=== PATIENT | female | born 1955 | race Asian ===

== ENCOUNTER 2016-10-02 20:19 | Inpatient (IN) | payer BC, OTHER ==
[~2016-10-02] VITALS: Ht 165.1 cm; Wt 70.0 kg
[2016-10-02] MEDS ORDERED: SODIUM CHLORIDE 0.9% 1L BAG IV* STA (21:46)
[2016-10-02] MEDS ORDERED: ACETAMINOPHEN 325 MG TAB PO STA (21:46)
[2016-10-02] MEDS ORDERED: HYDR12.58 PO (22:11)
[2016-10-02] MEDS ORDERED: ASPI-664 PO (22:12)
[2016-10-02] MEDS ORDERED: LOVA10TA63 PO (22:12)
[2016-10-02 22:13] LABS: URINE BLOOD (Dip) POC 2+ (NEGATIVE)
[2016-10-02] MEDS ORDERED: IBUP200C PO (22:13)
[2016-10-02] MEDS ORDERED: ONDANSETRON 4 MG INJ IV STA (22:19)
[2016-10-02 22:25] LABS: ADD SCAN DIFF NO
[2016-10-02 22:28] LABS: BASOPHILS % 0.1 % (0.0-2.0); HEMOGLOBIN 10.6 g/dl (12.0-16.0); LYMPHOCYTES # 0.8 10^3/ul (0.8-2.9); LYMPHOCYTES % 6.7 % (15.0-51.0); MEAN CORPUSCULAR HEMOGLOBIN 27.7 pg (29.0-33.0); MEAN CORPUSCULAR HGB CONC 31.2 g/dl (32.0-37.0); MEAN CORPUSCULAR VOLUME 88.8 fl (82.0-101.0); MEAN PLATELET VOLUME 8.7 fl (7.4-10.4); MONOCYTE # 0.4 10^3/ul (0.3-0.9); MONOCYTES % 3.2 % (0.0-11.0); NEUTROPHILS % 89.4 % (39.0-77.0); PLATELET COUNT 311 10^3/UL (140-415); RED BLOOD COUNT 3.83 10^6/ul (4.20-5.40); RED CELL DISTRIBUTION WIDTH 12.7 % (11.5-14.5); WHITE BLOOD COUNT 12.3 10^3/ul (4.8-10.8)
[2016-10-02] MEDS ORDERED: HYD25 PO (22:30)
[2016-10-02] MEDS ORDERED: LOVA20TA PO (22:30)
[2016-10-02 22:43] LABS: ALBUMIN 3.7 g/dl (3.3-4.9)
[2016-10-02 22:45] LABS: INR 1.13; PROTIME 14.5 Sec (12.2-14.2); PT RATIO 1.1
[2016-10-02 22:46] LABS: ALBUMIN/GLOBULIN RATIO 0.82; BILIRUBIN,INDIRECT 0.3 mg/dl (0-1.1); BILIRUBIN,TOTAL 0.3 mg/dl (0.2-1.3); CREATININE 1.4 mg/dl (0.44-1.00); PARTIAL THROMBOPLASTIN TIME 30.5 Sec (25.0-35.0); TOTAL PROTEIN 8.2 g/dl (6.1-8.1)
[2016-10-02 22:47] LABS: CALCIUM 8.8 mg/dl (8.4-10.2)
--- NOTE | 2016-10-02 22:47 | RADRPT ---
PROCEDURE: XR Chest. CLINICAL INDICATION: Shortness of breath. TECHNIQUE: AP Portable chest. COMPARISON: No pertinent prior examinations were submitted for comparison. FINDINGS: The cardiomediastinal silhouette is normal. The lungs are clear. The osseous structures are unrema rkable. IMPRESSION: No acute findings. RPTAT: HIKT .Mauro Menon MD, MD Date Time Electronically viewed and signed by .Mauro Menon MD, MD on 10/02/2016 22:47 .T/
[2016-10-02 22:48] LABS: ADD UMIC YES; URINE BILIRUBIN (Dip) NEGATIVE (NEGATIVE); URINE BLOOD (Dip) 2+ (NEGATIVE); URINE COLOR LT. YELLOW (YELLOW); URINE GLUCOSE (Dip) NEGATIVE (NEGATIVE); URINE KETONES (Dip) NEGATIVE (NEGATIVE); URINE LEUKOCYTE ESTERASE (Dip) NEGATIVE (NEGATIVE); URINE NITRITE (Dip) NEGATIVE (NEGATIVE); URINE TOTAL PROTEIN (Dip) NEGATIVE (NEGATIVE); URINE UROBILINOGEN (Dip) 0.2 E.U./dL (0.1-1.0)
[2016-10-02 22:55] LABS: POTASSIUM 2.8 mmol/L (3.5-5.1)
[2016-10-02 22:56] LABS: SQUAMOUS EPITHELIAL CELL,UR FEW; URINE RBCS 0-2 /HPF (0)
[2016-10-02 23:02] LABS: TROPONIN-I 0.136 ng/ml (0.00-0.12)
[2016-10-02] MEDS ORDERED: POTASSIUM CHLORIDE 250 ML IVPB ONE (23:30)
[2016-10-03] MEDS ORDERED: IBUPROFEN 200 MG TAB PO PRN
[2016-10-03] MEDS ORDERED: DOCUSATE SODIUM 100 MG CAP PO PRN
[2016-10-03] MEDS ORDERED: ASPIRIN 81 MG TAB PO ONE
[2016-10-03] MEDS ORDERED: HYDROCODONE/APAP (5/325) TAB PO PRN ×2
[2016-10-03] MEDS ORDERED: ONDANSETRON 4 MG INJ IV PRN
[2016-10-03] MEDS ORDERED: NACL 0.9% 3 ML SYG IV SCH
[2016-10-03] MEDS ORDERED: BISACODYL 10 MG SUPP PR PRN
[2016-10-03] MEDS ORDERED: NITROGLYCERIN (SL) 0.4 MG TAB SL PRN
[2016-10-03] MEDS ORDERED: MAGNESIUM HYDROXIDE 30ML CUP PO PRN
--- NOTE | 2016-10-03 00:48 | ERA ---
ER Documentation Chief Complaint Date/Time DATE: 10/03/16 TIME: 00:46 Chief Complaint fever, chills, vomiting since 1 hour ago HPI This is a 61-year-old female fever chills and vomiting since 1 hour ago. She denies any chest pain. Denies any shortness of breath. Denies any abdominal pain. One episode of vomiting which is nonbilious nonbloody. No other current complaints. No sick contacts. ROS All systems reviewed and are negative except as per history of present illness. Medications Home Meds Reported Medications Lovastatin* (Lovastatin*) 20 Mg Tablet, 20 MG PO HS, TAB 10/02/16 Hydrochlorothiazide* (Hydrochlorothiazide*) 25 Mg Tab, 25 MG PO DAILY, #30 TAB 10/02/16 Ibuprofen* (Ibuprofen*) 200 Mg Capsule, 200 MG PO TID Y for PAIN, CAP 10/02/16 Aspirin* (Aspirin* EC) 81 Mg Tablet.dr, 81 MG PO DAILY, TAB 10/02/16 Discontinued Reported Medications Lovastatin* (Lovastatin*) 10 Mg Tablet, 10 MG PO HS, TAB 10/02/16 Hydrochlorothiazide* (Hydrochlorothiazide*) 12.5 Mg Tablet, 12.5 MG PO DAILY, # 30 TAB 10/02/16 Allergies Allergies: Coded Allergies: No Known Allergy (Verified , 10/02/16) PMhx/Soc History of Surgery: No Anesthesia Reaction: No Hx Neurological Disorder: No Hx Respiratory Disorders: No Hx Cardiac Disorders: Yes (HNT) Hx Psychiatric Problems: No Hx Miscellaneous Medical Probl: No Hx Alcohol Use: No Hx Substance Use: No Hx Tobacco Use: No Smoking Status: Unknown if ever smoked Physical Exam Vitals Vital Signs Date Time Temp Pulse Resp B/P Pulse Ox O2 Delivery O2 Flow Rate FiO2 10/03/16 00:00 96 22 89/52 97 Nasal Cannula 3.0 10/02/16 22:18 Nasal Cannula 2 10/02/16 20:23 103.0 136 20 151/76 98 Physical Exam Const: [] Head: Atraumatic Eyes: Normal Conjunctiva ENT: Normal External Ears, Nose and Mouth. Neck: Full range of motion..~ No meningismus. Resp: Clear to auscultation bilaterally Cardio: Regular rate and rhythm, no murmurs Abd: Soft, non tender, non distended. Normal bowel sounds Skin: No petechiae or rashes Back: No midline or flank tenderness Ext: No cyanosis, or edema Neur: Awake and alert Psych: Normal Mood and Affect Result Diagram: 10/02/16215410/02/162154 Results 24 hrs Laboratory Tests Test 10/02/16 21:55 10/02/16 22:00 10/02/16 22:13 10/02/16 23:48 White Blood Count 12.310^3/ul Red Blood Count 3.8310^6/ul Hemoglobin 10.6g/dl Hematocrit 34.0% Mean Corpuscular Volume 88.8fl Mean Corpuscular Hemoglobin 27.7pg Mean Corpuscular Hemoglobin Concent 31.2g/dl Red Cell Distribution Width 12.7% Platelet Count 25389^3/UL Mean Platelet Volume 8.7fl Neutrophils % 89.4% Lymphocytes % 6.7% Monocytes % 3.2% Eosinophils % 0.0% Basophils % 0.1% Nucleated Red Blood Cells % 0.0/100WBC Neutrophils # 11.010^3/ul Lymphocytes # 0.810^3/ul Monocytes # 0.410^3/ul Eosinophils # 0.010^3/ul Basophils # 0.010^3/ul Nucleated Red Blood Cells # 0.010^3/ul Prothrombin Time 14.5Sec Prothrombin Time Ratio 1.1 INR International Normalized Ratio 1.13 Activated Partial Thromboplast Time 30.5Sec Sodium Level 134mmol/L Potassium Level 2.8mmol/L Chloride Level 95mmol/L Carbon Dioxide Level 26mmol/L Anion Gap 16 Blood Urea Nitrogen 20mg/dl Creatinine 1.40mg/dl Glucose Level 174mg/dl Lactic Acid Level 1.9mmol/L 1.1mmol/L Calcium Level 8.8mg/dl Total Bilirubin 0.3mg/dl Direct Bilirubin 0.00mg/dl Indirect Bilirubin 0.3mg/dl Aspartate Amino Transf (AST/SGOT) 44IU/L Alanine Aminotransferase (ALT/SGPT) 34IU/L Alkaline Phosphatase 146IU/L Troponin I 0.136ng/ml Total Protein 8.2g/dl Albumin 3.7g/dl Globulin 4.50g/dl Albumin/Globulin Ratio 0.82 Urine Color LT. YELLOW Urine Clarity CLEAR Urine pH 6.0 Urine Specific [place] 1.010 Urine Ketones NEGATIVE Urine Nitrite NEGATIVE Urine Bilirubin NEGATIVE Urine Urobilinogen 0.2 E.U./dL Urine Leukocyte Esterase NEGATIVE Urine Microscopic RBC 0-2/HPF Urine Microscopic WBC 0-2/HPF Urine Squamous Epithelial Cells FEW Urine Hemoglobin 2+ Urine Glucose NEGATIVE% Urine Total Protein NEGATIVE Bedside Urine pH (LAB) 6.5 Bedside Urine Protein (LAB) Negative Bedside Urine Glucose (UA) Negative Bedside Urine Ketones (LAB) Negative Bedside Urine Blood 2+ Bedside Urine Nitrite (LAB) Negative Bedside Urine Leukocyte Esterase (L Negative Current Medications Medications (Trade) Dose Ordered Sig/Maryjane Route PRN Reason Start Time Stop Time Status Last Admin Dose Admin Sodium Chloride (NS) 2,200 ml BOLUS OVER 2 HOURS STAT IV* 10/02/16 21:46 10/02/16 21:51 DC 10/02/16 22:13 Acetaminophen (Tylenol Tab) 650 mg ONCE STAT PO 10/02/16 21:46 10/02/16 21:51 DC 10/02/16 22:13 Ondansetron HCl 4 mg 4 mg ONCE STAT IV 10/02/16 22:19 10/02/16 22:21 DC 10/02/16 22:24 Potassium Chloride (KCl 40 MEQ/250 ML NS) 250 ml @ 62.5 mls/hr ONCE ONCE IVPB 10/02/16 23:30 10/03/16 03:29 10/02/16 23:44 Aspirin 324 mg 324 mg ONCE ONCE PO 10/03/16 00:00 10/03/16 00:01 DC 10/02/16 23:43 Potassium Chloride/Sodium Chloride (NS-KCl 20 Meq) 1,000 ml @ 100 mls/hr Q10H IV 10/02/16 23:52 UNV IV Flush (NS 3 ml) 3 ml PER PROTOCOL IV 10/03/16 00:00 UNV Ondansetron HCl (Zofran Inj) 4 mg Q6H PRN IV NAUSEA AND/OR VOMITING 10/03/16 00:00 UNV Aspirin (Aspirin) 81 mg DAILY PO 10/03/16 09:00 UNV Nitroglycerin (Nitroglycerin (Sl Tab) 0.4 Mg) 1 tab Q5M PRN SL CHEST PAIN 10/03/16 00:00 UNV Acetaminophen (Tylenol Tab) 650 mg Q6H PRN PO PAIN LEVEL 1-3 OR FEVER 10/03/16 00:00 UNV Acetaminophen/ Hydrocodone Bitart ([place] (5/325)) 1 tab Q6H PRN PO PAIN LEVEL 4-6 10/03/16 00:00 UNV Acetaminophen/ Hydrocodone Bitart ([place] (5/325)) 2 tab Q6H PRN PO PAIN LEVEL 7-10 10/03/16 00:00 UNV Morphine Sulfate (morphine) 2 mg Q4H PRN IV PAIN LEVEL 7-10 10/03/16 00:00 UNV Docusate Sodium (Colace) 100 mg Q12H PRN PO CONSTIPATION 10/03/16 00:00 UNV Magnesium Hydroxide (Milk Of Mag) 30 ml DAILY PRN PO CONSTIPATION 10/03/16 00:00 UNV Bisacodyl (Dulcolax Supp) 10 mg DAILY PRN [place] CONSTIPATION 10/03/16 00:00 UNV Pantoprazole (Protonix Tab) 40 mg DAILY@06 PO 10/03/16 06:00 UNV Ibuprofen (Motrin) 200 mg TID PRN PO PAIN 10/03/16 00:00 UNV Miscellaneous Information 20 mg HS PO 10/03/16 21:00 UNV Enoxaparin Sodium (Lovenox) 40 mg DAILY SC 10/03/16 09:00 UNV Procedures/MDM EKG: Rate/Rhythm: Normal Sinus Rhythm QRS, ST, T-waves: No changes consistent w/ acute ischemia Impression: No evidence of ischemia or arrhythmia Chest X-ray 1V Interpreted by me: Soft Tissue: No acute abnormalities Bones: No acute abnormalities Mediastinum/Cardiac Silhouette/Lungs: No acute abnormalities Potassium repleted Lactic acid negative Blood cultures and urine cultures pending Patient's symptoms are concerning for cardiac cause will require inpatient workup and continuous monitoring. Further w/u for ischemia, arrhythmia, PE or dissection will be deferred to the inpatient team. Accepting Care Team: Current data and ongoing care discussed. Time: 11:30 PM Primary Provider: Sadie CHAMPAGNE Consulting: [PJ] Outstanding Data: none Critical Care: Time: 45 minutes Treatments/Evaluations: Close monitoring and treatment of unstable vital signs, cardiorespiratory, and neurologic status, while maintaining tight balance of fluid, respiratory, and cardiac interventions. Departure Diagnosis: Primary Impression: Fever Qualified Code: R50.9 - Fever, unspecified fever cause Additional Impressions: Non-STEMI (non-ST elevated myocardial infarction) Hypokalemia Condition: Critical CHAD JOHNSON Oct 03, 2016 00:48
[2016-10-03] MEDS ORDERED: DEXAMETHASONE 10 MG/ML 1 ML INJ IV ONE (02:30)
[2016-10-03] MEDS ORDERED: PIPER-TAZO 3.375 GM IV (PMX) 100 ML IVPB ONE (02:30)
[2016-10-03] MEDS ORDERED: IOHEXOL 300MG/ML 150 ML BTL ONE (02:50)
[2016-10-03] MEDS ORDERED: SOD CHLORIDE 0.9% 100 ML ONE (02:50)
--- NOTE | 2016-10-03 03:28 | RADRPT ---
PROCEDURE: CTA Chest CLINICAL INDICATION: Shortness of breath. Suspected pulmonary embolus. TECHNIQUE: Thin section spiral CT images were obtained through the vasculature of the chest during administration of 1 under cc of Omnipaque-300 contrast material. Multiplanar reconstructions and 3 -D maximum intensity projection reconstructed images were performed. The images were reviewed on a PACS workstation. The total exam CTDI equals 12.8 mGy, and the total exam DLP equals 542.07 mGy-cm . One or more of the following dose reduction techniques were used: automated exposure control, adj ustment of the mA and/or kV according to patient size, or use of iterative reconstruction technique. COMPARISON: No prior studies are available for comparison. FINDINGS: Slight dependent atelectasis of the lungs is seen. No focal infiltrate or pleural effusion is seen. No pericardial effusion is seen. No hilar or mediastinal adenopathy is seen. There is no definite evidence for pulmonary embolus or aortic dissection. Aortic and coronary artery calcification is s een. Small hiatal hernia. There is a subtle minimally hyperenhancing lesion in the anterior segmen t of the right lobe of the liver which measures 4.6 x 4 cm. Central areas of hypodensity are seen w ithin the lesion centrally. No other liver lesions are seen. The abdomen is incompletely imaged on the study of the chest. There appears to be thymic tissue present suggesting rebound thymic hyperp lasia. There is mild degenerative change of the spine. IMPRESSION: No evidence for pulmonary embolus or aortic dissection. 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 4.6 cm incompletely evaluated liver lesion. Follow-up MRI with Eovist contrast is recommended. Aor tic atherosclerotic change. RPTAT: HLBE Physician Junior Date Time Electronically viewed and signed by Nona Milan Physician on 10/03/2016 03:28 LE/
[2016-10-03] MEDS ORDERED: PANTOPRAZOLE (EC) 40 MG TAB PO SCH (06:00)
[2016-10-03 06:22] LABS: ADD SCAN DIFF NO
[2016-10-03 06:28] LABS: HEMATOCRIT 31.2 % (37.0-47.0); HEMOGLOBIN 9.6 g/dl (12.0-16.0); MEAN CORPUSCULAR HGB CONC 30.8 g/dl (32.0-37.0); MEAN PLATELET VOLUME 8.7 fl (7.4-10.4); PLATELET COUNT 278 10^3/UL (140-415); RED BLOOD COUNT 3.43 10^6/ul (4.20-5.40); WHITE BLOOD COUNT 12.5 10^3/ul (4.8-10.8)
[2016-10-03 06:31] LABS: ALBUMIN 2.7 g/dl (3.3-4.9)
[2016-10-03 06:32] LABS: POTASSIUM 3.6 mmol/L (3.5-5.1)
[2016-10-03 06:34] LABS: ALBUMIN/GLOBULIN RATIO 0.72; BILIRUBIN,INDIRECT 0.2 mg/dl (0-1.1); BILIRUBIN,TOTAL 0.2 mg/dl (0.2-1.3); CALCIUM 7.3 mg/dl (8.4-10.2); CREATININE 1.03 mg/dl (0.44-1.00); TOTAL PROTEIN 6.4 g/dl (6.1-8.1)
[2016-10-03 06:35] LABS: CHOL/HDL RATIO 3.4 RATIO; MAGNESIUM 1.8 mg/dl (1.7-2.5)
[2016-10-03] MEDS: NS + KCL 20 MEQ 1,000 ML IV SCH ×3 (06:51→19:52)
[2016-10-03] MEDS: ASPIRIN 81 MG TAB PO SCH (08:08)
[2016-10-03] MEDS: ENOXAPARIN 40 MG/0.4 ML SYG SC SCH (08:08)
[2016-10-03 08:21] LABS: CK-MB 0.41 ng/ml (0.0-2.4)
[2016-10-03 08:24] LABS: TROPONIN-I 0.106 ng/ml (0.00-0.12)
[2016-10-03] MEDS ORDERED: MAGNESIUM SULFATE 2 GM/50 ML 50 ML IVPB ONE (09:30)
[2016-10-03] MEDS: ACETAMINOPHEN 325 MG TAB PO PRN (09:35)
[2016-10-03] MEDS ORDERED: LORAZEPAM 2 MG INJ ONE (09:37)
[2016-10-03] MEDS ORDERED: LEVALBUTEROL (NEB) 0.63 MG/3 ML AMP HHN PRN (10:00)
[2016-10-03] MEDS ORDERED: MONTELUKAST 10 MG TAB PO ONE (10:00)
[2016-10-03] MEDS ORDERED: LORAZEPAM 2 MG INJ IV ONE (10:00)
[2016-10-03] MEDS: LEVOFLOXACIN 750MG/D5W (PMX) 150 ML IVPB SCH (10:15)
[2016-10-03] MEDS: LEVALBUTEROL (NEB) 0.63 MG/3 ML AMP HHN SCH ×3 (10:26→20:00)
[2016-10-03 10:55] LABS: LYMPHOCYTES # 0.6 10^3/ul (0.8-2.9); MONOCYTE # 0.1 10^3/ul (0.3-0.9); NEUTROPHIL # 10.8 10^3/ul (1.6-7.5)
--- NOTE | 2016-10-03 11:41 | RADRPT ---
PROCEDURE: Right Upper Quadrant Ultrasound. CLINICAL INDICATION: evaluate liver lesion TECHNIQUE: Multiple real-time images were acquired of the patient's right upper quadrant abdomen a nd retroperitoneum utilizing a high resolution transducer. COMPARISON: CTA chest from 10/03/2016 FINDINGS: The liver measures 16.8 cm, and demonstrates increased echogenicity. The main portal vein is patent with proper directional flow. There is no intrahepatic biliary ductal dilatation. The extrahepatic c ommon bile duct measures 5 mm. Within the right lobe of the liver, there is a well-circumscribed heterogeneously hypoechoic lesion with foci of vascular flow eccentrically within it which measures 5.1 x 4.5 x 4.8 cm. There is no cholelithiasis. There is nonspecific gallbladder wall thickening to 5 mm. There is no pericholecystic fluid. The visualized pancreas is unremarkable. The right kidney measures 9.7 cm and demonstrates normal echotexture. There is no right renal calcul us or hydronephrosis. The visualized abdominal aorta and IVC are grossly unremarkable. IMPRESSION: 5.1 cm well-circumscribed hypoechoic lesion in the right lobe of the liver is nonspecific, but kae rning for malignancy. A CT or ultrasound guided biopsy is recommended for further evaluation. Mild hepatomegaly with mild to moderate fatty infiltration. No cholelithiasis. There is mild nonspecific gallbladder wall thickening which may at least in part be due to underdistension and there is no pericholecystic fluid. Acute cholecystitis is considered unlikely. Normal CBD. RPTAT: EE Physician Jimmy Date Time Electronically viewed and signed by Physician Jimmy on 10/03/2016 11:41 /
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
[2016-10-03 11:58] VITALS: TEMP 97.4
--- NOTE | 2016-10-03 13:16 | RADRPT ---
Echocardiogram Report Patient Name: HUNTER BARBER Gender: Female Date: 1955 Study Date: 03-Oct-2016 Joinery Machinist: Cruz Ward RDCS Location: 6 Ref. Physician: DK GARCIA Quality: Good Procedures: Transthoracic echocardiogram with complete 2D, M-Mode, and doppler examination. Indications: Elevated troponin. 2D/M Mode Doppler Measurement Value Normal Ranges Measurement Value Normal Ranges LVIDd 2D 4.9 3.5 - 5.6 cm AV Peak Jewel 1.0 m/sec LVIDs 2D 2.9 2.1 - 4.1 cm AV Peak PG 4.0 mmHg FS 2D 42.1 % LVOT Peak Jewel 0.8 m/sec LVPWd 2D 0.8 0.6 - 1.1 cm LVOT Peak PG 3.0 mmHg IVSd 2D 0.8 0.6 - 1.1 cm MV E Peak Jewel 0.7 m/sec IVS/LVPW 2D 1.0 MV A Peak Jewel 0.9 m/sec AoR Diam 2D 2.8 2.0 - 3.7 cm MV E/A 0.8 LA/Ao 2D 1 0 - 1 MV Decel Time 232 msec EDV 2D 121.0 cm3 MV E/A 0.8 ESV 2D 23.4 cm3 TR Peak Jewel 2.6 m/sec LA Dimen 2D 3.1 2.3 - 4.0 cm TR Peak PG 28.0 mmHg RVSP 31.0 mmHg Findings Left Ventricle: Normal left ventricular systolic function. Normal left ventricular cavity size. Normal left ventricular wall thickness. Ejection fraction is visually estimated at 60 %. Tissue Doppler/Mitral Doppler indices are consistent with impaired relaxation (Stage I diastolic dysfunction). Right Ventricle: Normal right ventricular size. Normal right ventricular systolic function. Left Atrium: The left atrium is normal in size. Right Atrium: There is mild enlargement of right atrium. Mitral Valve: Mitral valve leaflets appear mildly thickened. Mild mitral annular calcification. Mild mitral valve regurgitation. Aortic Valve: Normal appearance of the aortic valve. No significant aortic stenosis or insufficiency. Tricuspid Valve: Normal appearance of the tricuspid valve. Estimated peak PA systolic pressure 31 mmHg. There is mild tricuspid regurgitation. Pulmonic Valve: Normal pulmonic valve appearance. Pericardium: Normal pericardium with no significant pericardial effusion. Aorta: Normal aortic root. IVC: Normal size and normal respiratory collapse consistent with normal right atrial pressure. Conclusions Normal left ventricular systolic function. Normal left ventricular cavity size. Normal left ventricular wall thickness. Ejection fraction is visually estimated at 60 %. Tissue Doppler/Mitral Doppler indices are consistent with impaired relaxation (Stage I diastolic dysfunction). Normal right ventricular size. Normal right ventricular systolic function. The left atrium is normal in size. There is mild enlargement of right atrium. Mitral valve leaflets appear mildly thickened. Mild mitral annular calcification. Mild mitral valve regurgitation. Normal appearance of the tricuspid valve. Estimated peak PA systolic pressure 31 mmHg. There is mild tricuspid regurgitation. Normal appearance of the aortic valve. No significant aortic stenosis or insufficiency. Normal pericardium with no significant pericardial effusion. Electronically Signed By: Leobardo Canales 03-Oct-2016 13:15:30 -0700 Patient Name: HUNTER BARBER Study Date: 03-Oct-2016 [id number]
[2016-10-03 14:24] VITALS: PULSE 91
[2016-10-03 14:47] LABS: CK-MB 0.95 ng/ml (0.0-2.4)
[2016-10-03 14:50] VITALS: Ht 165.1 cm; Wt 70.0 kg
[2016-10-03 14:52] LABS: TROPONIN-I 0.172 ng/ml (0.00-0.12)
[2016-10-03] MEDS: SALMETEROL/FLUTICASONE 250/50 INHA INH SCH ×2 (14:58→21:58)
[2016-10-03 16:18] VITALS: BP 90/50; RESP 19
[2016-10-03 16:41] VITALS: PULSE 88
--- NOTE | 2016-10-03 18:02 | CONS ---
Date/Time of Note Date/Time of Note DATE: 10/03/16 TIME: 17:56 Assessment/Plan Assessment/Plan Additional Assessment/Plan SIRS Mildly elevated troponin Preserved ejection fraction Acute kidney injury -Patient with fevers and chills, myalgias, nausea and vomiting. Echocardiogram with preserved ejection fraction with no significant valvular abnormalities. Troponins minimally elevated likely secondary to current illness. ECG without significant abnormalities as well as echocardiogram. Would continue aspirin and statin therapy. ID workup. Consultation Date/Type/Reason Admit Date/Time Oct 02, 2016 at 23:33 Type of Consultation: cv Reason for Consultation Elevated troponin Hx of Present Illness This is a 61-year-old female with history of hypertension who presents with fatigue, fevers and chills nausea, vomiting and cough. Symptoms began approximate 1 week ago but progressively worsened. Patient was driving home from work and felt very lightheaded and dizzy. She had severe myalgias and had difficulty getting out of the car. She denies any shortness of breath, chest pain. She came to the emergency room after receiving medications including IV fluids, she feels much better. Denies history of exertional chest pain or shortness of breath currently or in the past. 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 12 point review of systems was performed with all pertinent positives and negatives mentioned above and all else is negative Past Medical History Medical History: hypertension Family History Significant Family History: no pertinent family hx Social History Alcohol Use: none Smoking Status: Former smoker Other Social History Caregiver Exam/Review of Systems Vital Signs Vitals Vital Signs Date Time Temp Pulse Resp B/P Pulse Ox O2 Delivery O2 Flow Rate FiO2 10/03/16 16:58 Nasal Cannula 10/03/16 16:41 88 10/03/16 16:18 98.2 19 90/50 98 10/03/16 11:58 3.0 Exam No apparent distress, appears fatigued Constitutional: alert, oriented Head: normocephalic Neck: supple Respiratory: clear to auscultation, normal air movement Cardiovascular: other (S1-S2 heard, no murmurs appreciated), regular rate and rhythm Gastrointestinal: bowel sounds, other (Diffuse discomfort with palpation of the abdomen, no guarding), soft Extremities: other (No edema or cyanosis) Results Result Diagram: 10/03/16 0500 10/03/16 0500 Results 24 hrs Laboratory Tests Test 10/02/16 21:55 10/02/16 22:00 10/02/16 22:13 10/02/16 23:48 White Blood Count 12.3 H Red Blood Count 3.83 L Hemoglobin 10.6 L Hematocrit 34.0 L Mean Corpuscular Volume 88.8 Mean Corpuscular Hemoglobin 27.7 L Mean Corpuscular Hemoglobin Concent 31.2 L Red Cell Distribution Width 12.7 Platelet Count 311 Mean Platelet Volume 8.7 Neutrophils % 89.4 H Lymphocytes % 6.7 L Monocytes % 3.2 Eosinophils % 0.0 Basophils % 0.1 Nucleated Red Blood Cells % 0.0 Neutrophils # 11.0 H Lymphocytes # 0.8 Monocytes # 0.4 Eosinophils # 0.0 Basophils # 0.0 Nucleated Red Blood Cells # 0.0 Prothrombin Time 14.5 H Prothrombin Time Ratio 1.1 INR International Normalized Ratio 1.13 Activated Partial Thromboplast Time 30.5 Sodium Level 134 L Potassium Level 2.8 *L Chloride Level 95 L Carbon Dioxide Level 26 Anion Gap 16 Blood Urea Nitrogen 20 Creatinine 1.40 H Glucose Level 174 Lactic Acid Level 1.9 1.1 Calcium Level 8.8 Total Bilirubin 0.3 Direct Bilirubin 0.00 Indirect Bilirubin 0.3 Aspartate Amino Transf (AST/SGOT) 44 Alanine Aminotransferase (ALT/SGPT) 34 Alkaline Phosphatase 146 H Troponin I 0.136 *H Total Protein 8.2 H Albumin 3.7 Globulin 4.50 H Albumin/Globulin Ratio 0.82 Urine Color LT. YELLOW Urine Clarity CLEAR Urine pH 6.0 Urine Specific [place] 1.010 Urine Ketones NEGATIVE Urine Nitrite NEGATIVE Urine Bilirubin NEGATIVE Urine Urobilinogen 0.2 E.U./dL Urine Leukocyte Esterase NEGATIVE Urine Microscopic RBC 0-2 Urine Microscopic WBC 0-2 Urine Squamous Epithelial Cells FEW Urine Hemoglobin 2+ H Urine Glucose NEGATIVE Urine Total Protein NEGATIVE Bedside Urine pH (LAB) 6.5 Bedside Urine Protein (LAB) Negative Bedside Urine Glucose (UA) Negative Bedside Urine Ketones (LAB) Negative Bedside Urine Blood 2+ H Bedside Urine Nitrite (LAB) Negative Bedside Urine Leukocyte Esterase (L Negative Test 10/03/16 02:18 10/03/16 02:30 10/03/16 05:00 10/03/16 05:45 Bedside Glucose 160 Lactic Acid Level 1.2 White Blood Count 12.5 H Red Blood Count 3.43 L Hemoglobin 9.6 L Hematocrit 31.2 L Mean Corpuscular Volume 91.0 Mean Corpuscular Hemoglobin 28.0 L Mean Corpuscular Hemoglobin Concent 30.8 L Red Cell Distribution Width 13.0 Platelet Count 278 Mean Platelet Volume 8.7 Neutrophils % 86.0 H Band Neutrophils % 8.0 H Lymphocytes % 5.0 L Monocytes % 1.0 Eosinophils % Neutrophils # 10.8 H Lymphocytes # 0.6 L Monocytes # 0.1 L Eosinophils # Differential Comment MANUAL DIFF Sodium Level 138 Potassium Level 3.6 Chloride Level 104 Carbon Dioxide Level 26 Anion Gap 12 Blood Urea Nitrogen 17 Creatinine 1.03 H Glucose Level 152 Calcium Level 7.3 L Magnesium Level 1.8 Total Bilirubin 0.2 Direct Bilirubin 0.00 Indirect Bilirubin 0.2 Aspartate Amino Transf (AST/SGOT) 45 Alanine Aminotransferase (ALT/SGPT) 38 Alkaline Phosphatase 103 Creatine Kinase 87 Creatine Kinase Index 0.5 Creatinine Kinase MB (Mass) 0.41 Troponin I 0.106 Total Protein 6.4 # Albumin 2.7 #L Globulin 3.70 H Albumin/Globulin Ratio 0.72 Triglycerides Level 56 Cholesterol Level 80 L LDL Cholesterol, Calculated 46 HDL Cholesterol 23 L Cholesterol/HDL Ratio 3.4 B-Type Natriuretic Peptide 730 H Test 10/03/16 13:20 Erythrocyte Sedimentation Rate 111 H Hemoglobin A1c 6.5 H Creatine Kinase 102 Creatine Kinase Index 0.9 Creatinine Kinase MB (Mass) 0.95 Troponin I 0.172 *H Medications Medications Current Medications Potassium Chloride/Sodium Chloride (NS-KCl 20 Meq) 1,000 ml @ 100 mls/hr Q10H IV Last administered on 10/03/16 06:51; Admin Dose 100 MLS/HR; Start 10/02/16 at 23:52 Ondansetron HCl (Zofran Inj) 4 mg Q6H PRN IV NAUSEA AND/OR VOMITING; Start at 00:00 Aspirin (Aspirin) 81 mg DAILY PO Last administered on 10/03/16 08:08; Admin Dose 81 MG; Start 10/03/16 at 09:00 Nitroglycerin (Nitroglycerin (Sl Tab) 0.4 Mg) 1 tab Q5M PRN SL CHEST PAIN; Start 10/03/16 at 00:00 Acetaminophen (Tylenol Tab) 650 mg Q6H PRN PO PAIN LEVEL 1-3 OR FEVER Last administered on 10/03/16 09:35; Admin Dose 650 MG; Start 10/03/16 at 00:00 Acetaminophen/ Hydrocodone Bitart ([place] (5/325)) 1 tab Q6H PRN PO PAIN LEVEL 4 -6; Start 10/03/16 at 00:00 Acetaminophen/ Hydrocodone Bitart ([place] (5/325)) 2 tab Q6H PRN PO PAIN LEVEL 7 -10; Start 10/03/16 at 00:00 Morphine Sulfate (morphine) 2 mg Q4H PRN IV PAIN LEVEL 7-10; Start 10/03/16 at 00:00 Docusate Sodium (Colace) 100 mg Q12H PRN PO CONSTIPATION; Start 10/03/16 at 00: 00 Magnesium Hydroxide (Milk Of Mag) 30 ml DAILY PRN PO CONSTIPATION; Start at 00:00 Bisacodyl (Dulcolax Supp) 10 mg DAILY PRN [place] CONSTIPATION; Start 10/03/16 at 00 :00 Ibuprofen (Motrin) 200 mg TID PRN PO PAIN; Start 10/03/16 at 00:00 Atorvastatin Calcium (Lipitor) 10 mg DAILY@21 PO ; Start 10/03/16 at 21:00 Enoxaparin Sodium 40 mg 40 mg DAILY SC Last administered on 10/03/16 08:08; Admin Dose 40 MG; Start 10/03/16 at 09:00 Levofloxacin/ Dextrose (Levaquin 750 Mg/ D5W 150 ml (Pmx)) 150 ml @ 100 mls/hr Q24H IVPB Last administered on 10/03/16 10:15; Admin Dose 100 MLS/HR; Start at 10:00 Salmeterol Xinafoate/ Fluticasone (Advair 250/50 Diskus) 1 inh BID INH ; Start 10/03/16 at 10:00 Montelukast Sodium (Singulair) 10 mg HS PO ; Start 10/04/16 at 21:00 Famotidine (Pepcid) 20 mg BID PO ; Start 10/03/16 at 21:00 Guaifenesin/ Dextromethorphan (Robitussin Dm Liquid Cup) 10 ml Q4H PRN PO COUGH ; Start 10/03/16 at 10:30 Procedures Procedures ECG demonstrates sinus rhythm, normal QRS duration, nonspecific STT wave abnormalities Leobardo Canales DO Oct 03, 2016 18:02
[2016-10-03 19:59] LABS: CK-MB 1.55 ng/ml (0.0-2.4)
[2016-10-03 20:00] VITALS: PULSE 87
[2016-10-03 20:02] LABS: TROPONIN-I 0.077 ng/ml (0.00-0.12)
[2016-10-03 20:08] VITALS: BP 105/54; RESP 16
[2016-10-03] MEDS: FAMOTIDINE 20 MG TAB PO SCH (21:57)
[2016-10-03] MEDS: ATORVASTATIN 10 MG TAB PO SCH (21:57)
[2016-10-04] VITALS (12 sets, daily range): BP systolic 91–116; BP diastolic 51–60; PULSE 80–122; RESP 16–22
[2016-10-04] MEDS: morphine 2 MG INJ IV PRN ×2 (00:02→03:41)
[2016-10-04] MEDS: LEVALBUTEROL (NEB) 0.63 MG/3 ML AMP HHN SCH ×4 (01:11→20:28)
[2016-10-04] MEDS: GUAIFENESIN/DM 5ML CUP PO PRN ×4 (05:01→22:07)
[2016-10-04] MEDS: NS + KCL 20 MEQ 1,000 ML IV SCH ×3 (05:52→21:25)
[2016-10-04 07:52] LABS: ADD SCAN DIFF NO
[2016-10-04 08:12] LABS: HEMATOCRIT 29.4 % (37.0-47.0); HEMOGLOBIN 8.9 g/dl (12.0-16.0); MEAN CORPUSCULAR HEMOGLOBIN 27.6 pg (29.0-33.0); MEAN CORPUSCULAR HGB CONC 30.3 g/dl (32.0-37.0); MEAN PLATELET VOLUME 9.4 fl (7.4-10.4); PLATELET COUNT 232 10^3/UL (140-415); RED BLOOD COUNT 3.23 10^6/ul (4.20-5.40); RED CELL DISTRIBUTION WIDTH 12.9 % (11.5-14.5); WHITE BLOOD COUNT 18.9 10^3/ul (4.8-10.8)
[2016-10-04 08:17] LABS: POTASSIUM 4.1 mmol/L (3.5-5.1)
[2016-10-04 08:20] LABS: CALCIUM 7.8 mg/dl (8.4-10.2); CREATININE 0.7 mg/dl (0.44-1.00)
[2016-10-04 08:25] LABS: MAGNESIUM 2.3 mg/dl (1.7-2.5); PHOSPHORUS 2.6 mg/dl (2.5-4.9)
[2016-10-04] MEDS: SALMETEROL/FLUTICASONE 250/50 INHA INH SCH ×2 (09:07→21:25)
[2016-10-04] MEDS: ASPIRIN 81 MG TAB PO SCH (09:07)
[2016-10-04] MEDS: FAMOTIDINE 20 MG TAB PO SCH ×2 (09:08→21:25)
[2016-10-04] MEDS: ENOXAPARIN 40 MG/0.4 ML SYG SC SCH (09:17)
[2016-10-04] MEDS: LEVOFLOXACIN 750MG/D5W (PMX) 150 ML IVPB SCH (10:23)
--- NOTE | 2016-10-04 11:25 | PN ---
Date/Time of Note Date/Time of Note DATE: 10/04/16 TIME: 11:11 Assessment/Plan VTE Prophylaxis VTE Prophylaxis Intervention: ambulation, LMWH, SCD's Lines/Catheters [facility] Sal[facility] Urinary Cath still in place: No Assessment/Plan Assessment/Plan 61-year-old female with: 1. Fevers, bronchospasm and cough for the past week c/w bronchitis and reactive airway disease and bronchospasms. Continue Levaquin Continue nebulizer treatment, Advair, Singulair Blood cultures NGTD. 2. Slightly elevated troponin. Cardiac enzymes are normalizing. 2D echocardiogram wnl CT angiogram chest negative. Continue ASA and statins Appreciate Cardiology recs 3. Acute kidney injury and hypokalemia, Resolved. Continue IV fluids for now. 4. E coli UTI: continue Levaquin. 5. Hypertension. Normotensive currently. 6. Pre-diabetes mellitus. A1c 6.5. ADA diet. 7. Liver lesion seen on CAT scan. Again seen on Liver US and patient now reporting hx of elevated LFTs and family hx of liver CA, mother had liver CA Will order bx of lesion by IR if can be done. Prophylaxis. SCDs and ambulation. Pepcid for gastrointestinal prophylaxis. DISPOSITION: Liver bx Subjective 24 Hr Interval Summary Free Text/Dictation Patient doing better, no complaints No abdo Pain Exam/Review of Systems Vital Signs Vitals Vital Signs Date Time Temp Pulse Resp B/P Pulse Ox O2 Delivery O2 Flow Rate FiO2 10/04/16 09:25 80 10/04/16 08:27 98.0 20 104/55 96 10/04/16 08:01 21 10/04/16 07:43 Nasal Cannula 2.0 Intake and Output 10/03/16 10/03/16 10/04/16 15:00 23:00 07:00 Intake Total 1100 ml 1080 ml Balance 1100 ml 1080 ml Exam Constitutional: alert, oriented, well developed Respiratory: clear to auscultation, normal air movement Cardiovascular: nl pulses, regular rate and rhythm Gastrointestinal: non-tender, soft Musculoskeletal: nl extremities to inspection Extremities: normal pulses, other (no edema, clubbing, or cyanosis ) Neurological: ORE GRADER II-XII intact, nl mental status, nl speech, nl strength Results Result Diagram: 10/04/16 0641 10/04/16 0641 Results 24 hrs Laboratory Tests Test 10/03/16 13:20 10/03/16 19:30 10/04/16 06:41 Erythrocyte Sedimentation Rate 111 H Hemoglobin A1c 6.5 H Creatine Kinase 102 120 Creatine Kinase Index 0.9 1.3 Creatinine Kinase MB (Mass) 0.95 1.55 Troponin I 0.172 *H 0.077 White Blood Count 18.9 #H Red Blood Count 3.23 L Hemoglobin 8.9 L Hematocrit 29.4 L Mean Corpuscular Volume 91.0 Mean Corpuscular Hemoglobin 27.6 L Mean Corpuscular Hemoglobin Concent 30.3 L Red Cell Distribution Width 12.9 Platelet Count 232 Mean Platelet Volume 9.4 Neutrophils % Eosinophils % Neutrophils # Eosinophils # Sodium Level 140 Potassium Level 4.1 Chloride Level 109 Carbon Dioxide Level 24 Anion Gap 11 Blood Urea Nitrogen 14 Creatinine 0.70 Glucose Level 137 Calcium Level 7.8 L Phosphorus Level 2.6 Magnesium Level 2.3 Medications Medications Current Medications Potassium Chloride/Sodium Chloride (NS-KCl 20 Meq) 1,000 ml @ 100 mls/hr Q10H IV Last administered on 10/04/16 05:52; Admin Dose 100 MLS/HR; Start 10/02/16 at 23:52 Ondansetron HCl (Zofran Inj) 4 mg Q6H PRN IV NAUSEA AND/OR VOMITING; Start at 00:00 Aspirin (Aspirin) 81 mg DAILY PO Last administered on 10/04/16 09:07; Admin Dose 81 MG; Start 10/03/16 at 09:00 Nitroglycerin (Nitroglycerin (Sl Tab) 0.4 Mg) 1 tab Q5M PRN SL CHEST PAIN; Start 10/03/16 at 00:00 Acetaminophen (Tylenol Tab) 650 mg Q6H PRN PO PAIN LEVEL 1-3 OR FEVER Last administered on 10/03/16 09:35; Admin Dose 650 MG; Start 10/03/16 at 00:00 Acetaminophen/ Hydrocodone Bitart ([place] (5/325)) 1 tab Q6H PRN PO PAIN LEVEL 4 -6; Start 10/03/16 at 00:00 Acetaminophen/ Hydrocodone Bitart ([place] (5/325)) 2 tab Q6H PRN PO PAIN LEVEL 7 -10; Start 10/03/16 at 00:00 Morphine Sulfate (morphine) 2 mg Q4H PRN IV PAIN LEVEL 7-10 Last administered on 10/04/16 03:41; Admin Dose 2 MG; Start 10/03/16 at 00:00 Docusate Sodium (Colace) 100 mg Q12H PRN PO CONSTIPATION; Start 10/03/16 at 00: 00 Magnesium Hydroxide (Milk Of Mag) 30 ml DAILY PRN PO CONSTIPATION; Start at 00:00 Bisacodyl (Dulcolax Supp) 10 mg DAILY PRN [place] CONSTIPATION; Start 10/03/16 at 00 :00 Ibuprofen (Motrin) 200 mg TID PRN PO PAIN; Start 10/03/16 at 00:00 Atorvastatin Calcium (Lipitor) 10 mg DAILY@21 PO Last administered on 21:57; Admin Dose 10 MG; Start 10/03/16 at 21:00 Enoxaparin Sodium 40 mg 40 mg DAILY SC Last administered on 10/04/16 09:17; Admin Dose 40 MG; Start 10/03/16 at 09:00 Levofloxacin/ Dextrose (Levaquin 750 Mg/ D5W 150 ml (Pmx)) 150 ml @ 100 mls/hr Q24H IVPB Last administered on 10/04/16 10:23; Admin Dose 100 MLS/HR; Start at 10:00 Salmeterol Xinafoate/ Fluticasone (Advair 250/50 Diskus) 1 inh BID INH Last administered on 10/04/16 09:07; Admin Dose 1 INH; Start 10/03/16 at 10:00 Montelukast Sodium (Singulair) 10 mg HS PO ; Start 10/04/16 at 21:00 Famotidine (Pepcid) 20 mg BID PO Last administered on 10/04/16 09:08; Admin Dose 20 MG; Start 10/03/16 at 21:00 Guaifenesin/ Dextromethorphan (Robitussin Dm Liquid Cup) 10 ml Q4H PRN PO COUGH Last administered on 10/04/16 09:10; Admin Dose 10 ML; Start 10/03/16 at 10:30 DARREN GARCIA Oct 04, 2016 11:24
[2016-10-04 12:23] LABS: LYMPHOCYTES # 1.9 10^3/ul (0.8-2.9); MONOCYTE # 0.4 10^3/ul (0.3-0.9)
[2016-10-04] MEDS: ACETAMINOPHEN 325 MG TAB PO PRN (15:34)
--- NOTE | 2016-10-04 15:49 | CONS ---
Date/Time of Note Date/Time of Note DATE: 10/04/16 TIME: 15:46 Assessment/Plan Assessment/Plan Additional Assessment/Plan SIRS Mildly elevated troponin Preserved ejection fraction Acute kidney injury -Patient still with subjective fevers and chills. Undergoing workup. No evidence of decompensated congestive heart failure with preserved ejection fraction. Renal function has improved. Consultation Date/Type/Reason Admit Date/Time Oct 02, 2016 at 23:33 Initial Consult Date Type of Consultation: cv 24 HR Interval Summary Free Text/Dictation Patient complaining of subjective fevers and chills throughout the day. Denies chest pain, shortness of breath Exam/Review of Systems Vital Signs Vitals Vital Signs Date Time Temp Pulse Resp B/P Pulse Ox O2 Delivery O2 Flow Rate FiO2 10/04/16 14:03 83 18 96 21 10/04/16 12:30 98.6 106/58 10/04/16 07:43 Nasal Cannula 2.0 Intake and Output 10/03/16 10/03/16 10/04/16 15:00 23:00 07:00 Intake Total 1100 ml 1080 ml Balance 1100 ml 1080 ml Exam Having intermittent rigors Constitutional: alert, oriented Head: normocephalic Respiratory: other (Coarse breath sounds bilaterally, no wheezing) Cardiovascular: regular rate and rhythm (S1-S2 heard) Gastrointestinal: bowel sounds, non-tender, soft Extremities: other (No edema) Results Result Diagram: 10/04/16 0641 10/04/16 0641 Results 24 hrs Laboratory Tests Test 10/03/16 19:30 10/04/16 06:41 Creatine Kinase 120 Creatine Kinase Index 1.3 Creatinine Kinase MB (Mass) 1.55 Troponin I 0.077 White Blood Count 18.9 #H Red Blood Count 3.23 L Hemoglobin 8.9 L Hematocrit 29.4 L Mean Corpuscular Volume 91.0 Mean Corpuscular Hemoglobin 27.6 L Mean Corpuscular Hemoglobin Concent 30.3 L Red Cell Distribution Width 12.9 Platelet Count 232 Mean Platelet Volume 9.4 Neutrophils % 69.0 Band Neutrophils % 17.0 H Lymphocytes % 10.0 L Monocytes % 2.0 Eosinophils % Metamyelocytes % 2.0 H Neutrophils # 13.0 H Lymphocytes # 1.9 Monocytes # 0.4 Eosinophils # Metamyelocytes # 0.4 Sodium Level 140 Potassium Level 4.1 Chloride Level 109 Carbon Dioxide Level 24 Anion Gap 11 Blood Urea Nitrogen 14 Creatinine 0.70 Glucose Level 137 Calcium Level 7.8 L Phosphorus Level 2.6 Magnesium Level 2.3 Medications Medications Current Medications Potassium Chloride/Sodium Chloride (NS-KCl 20 Meq) 1,000 ml @ 100 mls/hr Q10H IV Last administered on 10/04/16 05:52; Admin Dose 100 MLS/HR; Start 10/02/16 at 23:52 Ondansetron HCl (Zofran Inj) 4 mg Q6H PRN IV NAUSEA AND/OR VOMITING; Start at 00:00 Aspirin (Aspirin) 81 mg DAILY PO Last administered on 10/04/16 09:07; Admin Dose 81 MG; Start 10/03/16 at 09:00 Nitroglycerin (Nitroglycerin (Sl Tab) 0.4 Mg) 1 tab Q5M PRN SL CHEST PAIN; Start 10/03/16 at 00:00 Acetaminophen (Tylenol Tab) 650 mg Q6H PRN PO PAIN LEVEL 1-3 OR FEVER Last administered on 10/04/16 15:34; Admin Dose 650 MG; Start 10/03/16 at 00:00 Acetaminophen/ Hydrocodone Bitart ([place] (5/325)) 1 tab Q6H PRN PO PAIN LEVEL 4 -6; Start 10/03/16 at 00:00 Acetaminophen/ Hydrocodone Bitart ([place] (5/325)) 2 tab Q6H PRN PO PAIN LEVEL 7 -10; Start 10/03/16 at 00:00 Morphine Sulfate (morphine) 2 mg Q4H PRN IV PAIN LEVEL 7-10 Last administered on 10/04/16 03:41; Admin Dose 2 MG; Start 10/03/16 at 00:00 Docusate Sodium (Colace) 100 mg Q12H PRN PO CONSTIPATION; Start 10/03/16 at 00: 00 Magnesium Hydroxide (Milk Of Mag) 30 ml DAILY PRN PO CONSTIPATION; Start at 00:00 Bisacodyl (Dulcolax Supp) 10 mg DAILY PRN [place] CONSTIPATION; Start 10/03/16 at 00 :00 Ibuprofen (Motrin) 200 mg TID PRN PO PAIN; Start 10/03/16 at 00:00 Atorvastatin Calcium 10 mg 10 mg DAILY@21 PO Last administered on 10/03/16 21: 57; Admin Dose 10 MG; Start 10/03/16 at 21:00 Levofloxacin/ Dextrose (Levaquin 750 Mg/ D5W 150 ml (Pmx)) 150 ml @ 100 mls/hr Q24H IVPB Last administered on 10/04/16 10:23; Admin Dose 100 MLS/HR; Start at 10:00 Salmeterol Xinafoate/ Fluticasone (Advair 250/50 Diskus) 1 inh BID INH Last administered on 10/04/16 09:07; Admin Dose 1 INH; Start 10/03/16 at 10:00 Montelukast Sodium (Singulair) 10 mg HS PO ; Start 10/04/16 at 21:00 Famotidine (Pepcid) 20 mg BID PO Last administered on 10/04/16 09:08; Admin Dose 20 MG; Start 10/03/16 at 21:00 Guaifenesin/ Dextromethorphan (Robitussin Dm Liquid Cup) 10 ml Q4H PRN PO COUGH Last administered on 10/04/16 09:10; Admin Dose 10 ML; Start 10/03/16 at 10:30 Leobardo Canales DO Oct 04, 2016 15:49
[2016-10-04] MEDS ORDERED: MONTELUKAST 10 MG TAB PO SCH (21:00)
[2016-10-04] MEDS: ATORVASTATIN 10 MG TAB PO SCH (21:25)
[2016-10-04] MEDS ORDERED: LORAZEPAM 2 MG INJ IM ONE (22:30)
[2016-10-04] MEDS ORDERED: LORAZEPAM 2 MG INJ IV PRN (22:30)
[2016-10-05] VITALS (25 sets, daily range): BP systolic 93–153; BP diastolic 53–83; PULSE 92–111; RESP 18–25
[2016-10-05] MEDS: LEVALBUTEROL (NEB) 0.63 MG/3 ML AMP HHN SCH ×3 (02:52→14:00)
[2016-10-05 07:17] LABS: ADD SCAN DIFF NO
[2016-10-05 07:20] LABS: BASOPHILS % 0.1 % (0.0-2.0); EOSINOPHILS % 0.2 % (0.0-7.0); HEMATOCRIT 31.9 % (37.0-47.0); HEMOGLOBIN 9.8 g/dl (12.0-16.0); LYMPHOCYTES # 2.5 10^3/ul (0.8-2.9); LYMPHOCYTES % 17.2 % (15.0-51.0); MEAN CORPUSCULAR HEMOGLOBIN 27.8 pg (29.0-33.0); MEAN CORPUSCULAR HGB CONC 30.7 g/dl (32.0-37.0); MEAN CORPUSCULAR VOLUME 90.4 fl (82.0-101.0); MONOCYTE # 0.6 10^3/ul (0.3-0.9); MONOCYTES % 4.2 % (0.0-11.0); NEUTROPHIL # 10.9 10^3/ul (1.6-7.5); NEUTROPHILS % 76.7 % (39.0-77.0); PLATELET COUNT 267 10^3/UL (140-415); RED BLOOD COUNT 3.53 10^6/ul (4.20-5.40); RED CELL DISTRIBUTION WIDTH 13.2 % (11.5-14.5); WHITE BLOOD COUNT 14.2 10^3/ul (4.8-10.8)
[2016-10-05 07:30] LABS: INR 1.03; PROTIME 13.5 Sec (12.2-14.2); PT RATIO 1.1
[2016-10-05 07:31] LABS: PARTIAL THROMBOPLASTIN TIME 35.4 Sec (25.0-35.0)
[2016-10-05 07:35] LABS: PHOSPHORUS 2.8 mg/dl (2.5-4.9)
[2016-10-05 07:39] LABS: CALCIUM 8.1 mg/dl (8.4-10.2); CREATININE 0.8 mg/dl (0.44-1.00)
[2016-10-05] MEDS: SALMETEROL/FLUTICASONE 250/50 INHA INH SCH (08:36)
[2016-10-05] MEDS: FAMOTIDINE 20 MG TAB PO SCH (08:36)
[2016-10-05] MEDS: NS + KCL 20 MEQ 1,000 ML IV SCH (08:38)
[2016-10-05] MEDS: ASPIRIN 81 MG TAB PO SCH (09:00)
[2016-10-05] MEDS: LEVOFLOXACIN 750MG/D5W (PMX) 150 ML IVPB SCH (10:09)
[2016-10-05] MEDS: GUAIFENESIN/DM 5ML CUP PO PRN (10:13)
--- NOTE | 2016-10-05 10:20 | PN ---
Date/Time of Note Date/Time of Note DATE: 10/05/16 TIME: 10:10 Assessment/Plan VTE Prophylaxis VTE Prophylaxis Intervention: SCD's Lines/Catheters [facility] Saline Lock Urinary Cath still in place: No Assessment/Plan Assessment/Plan 61-year-old female with: 1. Fevers, bronchospasm and cough for the past week c/w bronchitis and reactive airway disease and bronchospasms. Low grade temp this AM. Afebrile now Continue Levaquin Continue nebulizer treatment, Advair, Singulair Blood cultures NGTD. 2. Slightly elevated troponin. Cardiac enzymes are normalizing. 2D echocardiogram wnl CT angiogram chest negative. Continue ASA and statins Appreciate Cardiology recs, unlikely NSTEMI 3. Acute kidney injury and hypokalemia, Resolved. Continue IV fluids for now. 4. E coli UTI: continue Levaquin. 5. Hypertension. Normotensive currently. 6. Pre-diabetes mellitus. A1c 6.5. ADA diet. 7. Liver lesion seen on CAT scan. Again seen on Liver US and patient now reporting hx of elevated LFTs and family hx of liver CA, mother had liver CA Liver bx pending today. Prophylaxis. SCDs and ambulation. Pepcid for gastrointestinal prophylaxis. DISPOSITION: Liver bx today and d/c plan later today or in AM at the latest with outpatient follow up on pathology report next week Subjective 24 Hr Interval Summary Free Text/Dictation Patient doing much better Awaiting liver bx today with d/c plan later today and follow up with pathology next week Exam/Review of Systems Vital Signs Vitals Vital Signs Date Time Temp Pulse Resp B/P Pulse Ox O2 Delivery O2 Flow Rate FiO2 10/05/16 08:24 109 10/05/16 08:00 98.6 21 118/57 100 10/05/16 02:53 21 10/04/16 07:43 Nasal Cannula 2.0 Intake and Output 10/04/16 10/04/16 10/05/16 15:00 23:00 07:00 Intake Total 150 ml 860 ml Balance 150 ml 860 ml Exam Constitutional: alert, oriented, well developed Respiratory: congested cough, normal air movement Gastrointestinal: non-tender, soft Musculoskeletal: nl extremities to inspection Extremities: normal pulses, other (no edema, clubbing or cyanosis ) Neurological: NARROW FABRIC LOOM FIXER II-XII intact, nl mental status, nl speech, nl strength Results Result Diagram: 10/05/16 0655 10/05/16 0655 Results 24 hrs Laboratory Tests Test 10/05/16 06:55 White Blood Count 14.2 #H Red Blood Count 3.53 L Hemoglobin 9.8 L Hematocrit 31.9 L Mean Corpuscular Volume 90.4 Mean Corpuscular Hemoglobin 27.8 L Mean Corpuscular Hemoglobin Concent 30.7 L Red Cell Distribution Width 13.2 Platelet Count 267 Mean Platelet Volume 9.0 Neutrophils % 76.7 Lymphocytes % 17.2 Monocytes % 4.2 Eosinophils % 0.2 Basophils % 0.1 Nucleated Red Blood Cells % 0.0 Neutrophils # 10.9 H Lymphocytes # 2.5 Monocytes # 0.6 Eosinophils # 0.0 Basophils # 0.0 Nucleated Red Blood Cells # 0.0 Prothrombin Time 13.5 Prothrombin Time Ratio 1.1 INR International Normalized Ratio 1.03 Activated Partial Thromboplast Time 35.4 H Sodium Level 139 Potassium Level 4.0 Chloride Level 111 H Carbon Dioxide Level 25 Anion Gap 7 L Blood Urea Nitrogen 8 Creatinine 0.80 Glucose Level 94 # Calcium Level 8.1 L Phosphorus Level 2.8 Magnesium Level 2.0 Medications Medications Current Medications Potassium Chloride/Sodium Chloride (NS-KCl 20 Meq) 1,000 ml @ 100 mls/hr Q10H IV Last administered on 10/05/16 08:38; Admin Dose 100 MLS/HR; Start 10/02/16 at 23:52 Ondansetron HCl (Zofran Inj) 4 mg Q6H PRN IV NAUSEA AND/OR VOMITING; Start at 00:00 Aspirin (Aspirin) 81 mg DAILY PO Last administered on 10/04/16 09:07; Admin Dose 81 MG; Start 10/03/16 at 09:00 Nitroglycerin (Nitroglycerin (Sl Tab) 0.4 Mg) 1 tab Q5M PRN SL CHEST PAIN; Start 10/03/16 at 00:00 Acetaminophen (Tylenol Tab) 650 mg Q6H PRN PO PAIN LEVEL 1-3 OR FEVER Last administered on 10/04/16 15:34; Admin Dose 650 MG; Start 10/03/16 at 00:00 Acetaminophen/ Hydrocodone Bitart ([place] (5/325)) 1 tab Q6H PRN PO PAIN LEVEL 4 -6; Start 10/03/16 at 00:00 Acetaminophen/ Hydrocodone Bitart ([place] (5/325)) 2 tab Q6H PRN PO PAIN LEVEL 7 -10; Start 10/03/16 at 00:00 Morphine Sulfate (morphine) 2 mg Q4H PRN IV PAIN LEVEL 7-10 Last administered on 10/04/16 03:41; Admin Dose 2 MG; Start 10/03/16 at 00:00 Docusate Sodium (Colace) 100 mg Q12H PRN PO CONSTIPATION; Start 10/03/16 at 00: 00 Magnesium Hydroxide (Milk Of Mag) 30 ml DAILY PRN PO CONSTIPATION; Start at 00:00 Bisacodyl (Dulcolax Supp) 10 mg DAILY PRN [place] CONSTIPATION; Start 10/03/16 at 00 :00 Ibuprofen (Motrin) 200 mg TID PRN PO PAIN; Start 10/03/16 at 00:00 Atorvastatin Calcium 10 mg 10 mg DAILY@21 PO Last administered on 10/04/16 21: 25; Admin Dose 10 MG; Start 10/03/16 at 21:00 Levofloxacin/ Dextrose (Levaquin 750 Mg/ D5W 150 ml (Pmx)) 150 ml @ 100 mls/hr Q24H IVPB Last administered on 10/04/16 10:23; Admin Dose 100 MLS/HR; Start at 10:00 Salmeterol Xinafoate/ Fluticasone (Advair 250/50 Diskus) 1 inh BID INH Last administered on 10/05/16 08:36; Admin Dose 1 INH; Start 10/03/16 at 10:00 Montelukast Sodium (Singulair) 10 mg HS PO Last administered on 10/04/16 21:25 ; Admin Dose 10 MG; Start 10/04/16 at 21:00 Famotidine (Pepcid) 20 mg BID PO Last administered on 10/05/16 08:36; Admin Dose 20 MG; Start 10/03/16 at 21:00 Guaifenesin/ Dextromethorphan (Robitussin Dm Liquid Cup) 10 ml Q4H PRN PO COUGH Last administered on 10/04/16 22:07; Admin Dose 10 ML; Start 10/03/16 at 10:30 Lorazepam (Ativan) 0.5 mg Q8H PRN IV ANXIETY Last administered on 10/05/16t 03: 21; Admin Dose 0.5 MG; Start 10/04/16 at 22:30 DARREN GARCIA Oct 05, 2016 10:20
--- NOTE | 2016-10-05 10:21 | PDOCDIS ---
Discharge Instructions CONDITION Patient Condition: Stable HOME CARE INSTRUCTIONS: Diet Instructions: Regular ACTIVITY: Activity Restrictions: No Restrictions FOLLOW UP/APPOINTMENTS Appointments Follow up with PCP within 1 week DARREN GARCIA Oct 05, 2016 10:21
[2016-10-05] MEDS ORDERED: MONT10TA24 PO (10:25)
[2016-10-05] MEDS ORDERED: LEVO750T25 PO (10:25)
[2016-10-05] MEDS ORDERED: ADV25050 INH (10:25)
[2016-10-05] MEDS ORDERED: ALBU18HF INHALATION (10:25)
[2016-10-05] MEDS ORDERED: UDROBDM PO (10:25)
[2016-10-05] MEDS ORDERED: LIDOCAINE 1% (MDV) 20 ML INJ ONE (11:20)
[2016-10-05] MEDS ORDERED: SOD CHLORIDE 0.9% 500 ML ONE (11:20)
[2016-10-05] MEDS ORDERED: FENTAnyl 50 MCG/ML VIAL ONE (11:20)
[2016-10-05] MEDS ORDERED: MIDAZOLAM 1 MG/ML 2 ML INJ ONE (11:20)
[2016-10-05] MEDS ORDERED: GELATIN 12MM X 7 MM SPONGE ONE (12:32)
[2016-10-05] MEDS: ACETAMINOPHEN 325 MG TAB PO PRN (15:11)
--- NOTE | 2016-10-05 17:17 | DS ---
DATE OF ADMISSION: 10/02/2016 DATE OF DISCHARGE: 10/05/2016 ADMITTING PHYSICIAN: Dr. Morales DISCHARGING PHYSICIAN: Dr. Morales APPLIQUER ZIGZAG ON THIS ADMISSION: Dr. Canales CHIEF COMPLAINT ON ADMISSION: Fever and cough. BRIEF HISTORY OF PRESENT ILLNESS: This is a 61-year-old female with history of hypertension, hyperl ipidemia, prediabetes mellitus who presented to the emergency department with a cough for 1 week, ap parently episodes of fever prior to admission and also chills. In the emergency department, she was found to be febrile to 103 with episodes of chills. She was pancultured, also had a CT angiogram o f the chest that showed no infiltrate, but the patient kept having a dry cough and also on her labor atory data was noted to have a slight elevation of her troponins at 0.13. The patient was admitted to a telemetry bed. HOSPITAL COURSE: The patient had episodes of chills that were witnessed by myself. She was given a dose of Tylenol. Her fevers have resolved so far. The highest temperature she had was 100.2. She is doing very well. No nausea, no vomiting. Blood cultures are negative x48 hours. Urine culture s are growing less than 100,000 CFU of E. coli, pansensitive. The patient is on Levaquin for assume d bronchitis at this point. During her workup for this fever, she had a CT angiogram of the chest w hich did not show any acute findings but was suggesting a liver lesion. Therefore, she had an ultra sound of the liver that did confirm a 5.1 cm well-circumscribed hyperechoic lesion in the right lobe , nonspecific but concerning for malignancy. Therefore, a biopsy was recommended. The patient had a liver lesion biopsy done today by IR. She is doing very well. She will be discharged post biopsy . I have told her that the pathology won't be available until next week and will have to follow up with her at that point. She will be discharged on Levaquin both for the UTI seen in the urine and a lso for possibly bronchitis. She is to follow up with her primary care physician by next week early . DISPOSITION: Discharge home. DISCHARGE CONDITION: Stable. DISCHARGE DIET: Diabetic diet. DISCHARGE ACTIVITY: Resume home activity. FOLLOWUP: The patient is to follow up with her primary care physician within 1 week. DISCHARGE MEDICATIONS: 1. Ventolin HFA 2 puffs inhaled q.4 hours p.r.n. shortness of breath. 2. Robitussin-DM. 3. Levaquin 750 mg p.o. daily for 4 more days. 4. Singulair 10 mg p.o. at bedtime. 5. Advair 250/50 one puff inhaled b.i.d. 6. Aspirin 81 mg daily. 7. Lovastatin 20 mg p.o. at bedtime. 8. Ibuprofen p.r.n. pain. DISCONTINUED MEDICATION: Includes hydrochlorothiazide. FINAL DIAGNOSES: 1. Fevers with bronchospasm, signs of bronchitis, all resolving, improving slowly. Actually this i s likely a viral infection, but she is on Levaquin currently for possible secondary infection. 2. Escherichia coli urinary tract infection sensitive to Levaquin. 3. Slightly elevated troponins, resolved. 4. Acute kidney injury, resolved. 5. Hypertension, normotensive on this admission. 6. Prediabetes mellitus. 7. Liver lesion, status post biopsy. Dictated By: DARREN WOODS/ALEXI Conf#: [id number] DID#: [id number]
--- NOTE | 2016-10-05 17:49 | RADRPT ---
PROCEDURE: CT guided liver biopsy. CLINICAL INDICATION: Mass in the right hepatic lobe. TECHNIQUE: Informed consent was obtained. The procedure, risks, benefits, complications and alternatives were e xplained to the patient. Risks including bleeding and infection were explained. The patient understo od and was willing to proceed. A procedural pause was performed. The patient's name, date of , and procedure to be performed were verified. One or more of the following dose reduction techniqu es were used: Automated exposure control, adjustment of the mA and/or kV according to patient size, use of iterative reconstruction technique. Using local anesthetic, sterile technique and CT guidance, an 18-gauge automated core biopsy needle was used to biopsy the mass in the right hepatic lobe. Multiple passes were made. Adequate tissue was obtained according to the pathologist present during the procedure. The needle was removed. A postprocedural scan was performed. A dressing was applied. The patient tolerated procedure well. COMPARISON: None. FINDINGS: Initial images demonstrate the tip of the needle inferior to the mass. The needle was repositioned and additional images were obtained demonstrating the needle tip at the edge of the mass in the righ t hepatic lobe. The needle tract was embolized with Gelfoam pledgets. Post biopsy images demonstrate no immediate complication. IMPRESSION: 1. Successful CT guided liver biopsy. RPTAT: QQ .Anant Unger MD, Date Time Electronically viewed and signed by .Anant Unger MD, on 10/05/2016 17:48 .R/
== END 2016-10-05 18:34 | disposition home or self-care (01) | DRG 202 ==
LOC: E/R 20:19 → MS4 23:33
PROVIDERS: ADMIT Internal Medicine; ATTEND Internal Medicine
PROC: 0FB13ZX Excision of Right Lobe Liver, Percutaneous Approach, Diagnostic (ICD-10-PCS; principal; 2016-10-05)
DX: J20.8 Acute bronchitis due to other specified organisms (principal); N17.9 Acute kidney failure, unspecified; N30.00 Acute cystitis without hematuria; E87.6 Hypokalemia; B96.20 Unspecified Escherichia coli [E. coli] as the cause of diseases classified elsewhere; I10 Essential (primary) hypertension; R73.03 Prediabetes; R50.9 Fever, unspecified; J45.909 Unspecified asthma, uncomplicated; Z87.891 Personal history of nicotine dependence; K76.9 Liver disease, unspecified; Z80.8 Family history of malignant neoplasm of other organs or systems
CPT/HCPCS: 36415; 71010; 71275; 76705; 77012; 80048; 80053; 80061; 81001; 81003; 82550; 82553; 82962; 83036; 83605; 83735; 83880; 84100; 84484; 85025; 85610; 85651; 85730; 87040; 87086; 87400; 87449; 88305; 88312; 88313; 93005; 93306; 94640; 94664; 96361; 96365; 96372; 96375; J1100; J1650; J1956; J2060; J2250; J2270; J2405; J2543; J3010; J3475; J3480; J7030; J7040; Q9967

== ENCOUNTER 2017-02-25 09:50 | Emergency (ER) | payer OTHER ==
[~2017-02-25] VITALS: Ht 157.5 cm; Wt 73.0 kg
[~2017-02-25 09:50] MED LIST: ADV25050 INH; ALBU18HF INHALATION; ASPI-664 PO; IBUP200C PO; LEVO750T25 PO; LOVA20TA PO; MONT10TA24 PO; UDROBDM PO
[2017-02-25 09:52] VITALS: Ht 157.5 cm; Wt 73.0 kg
--- NOTE | 2017-02-25 11:21 | RADRPT ---
PROCEDURE: US Lower extremity Venous. CLINICAL INDICATION: Right leg edema , pain TECHNIQUE: Multiple sonographic images of the right lower extremity deep venous system was obtaine d utilizing grayscale, color-flow, compressive sonography and doppler imaging with augmentation. Th e images were reviewed on a PACS workstation. COMPARISON: None. FINDINGS: There is normal compressibility and flow within the right common femoral, femoral, posterior tibial, peroneal and popliteal veins. RPTAT: AA IMPRESSION: No sonographic evidence for deep venous thrombosis. .Mitchell Jordan MD, MD Date Time Electronically viewed and signed by .Mitchell Jordan MD, on 02/25/2017 11:20 .S/
--- NOTE | 2017-02-25 11:46 | RADRPT ---
PROCEDURE: XR Knee 3 Views. CLINICAL INDICATION: Right knee pain and trauma. TECHNIQUE: AP, lateral and tunnel view of the right knee were obtained. The images reviewed on a PACS workstation. COMPARISON: None. FINDINGS: The osseous structures are intact. No destructive bony lesions are observed. Interosseous spaces a re normal. Small enthesiophyte projects from the superior aspect of the patella. Small suprapatellar joint effusion is observed. IMPRESSION: Small suprapatellar joint effusion. Etiology is uncertain. If there is a history of trauma, ligamen tous and tendinous injury is not excluded. If characterization of the ligaments and tendons is need ed MRI is recommended. Small enthesophyte that projects from the superior aspect of the patella. Finding could be the sequ elae of quadriceps tendonitis. If further characterization is needed CT or MRI could be helpful. If there is high clinical suspicion for bony traumatic injury, further evaluation with CT should be considered. RPTAT: AA .Marcin Lunsford MD, Date Time Electronically viewed and signed by .Marcin Lunsford MD, MD on 02/25/2017 11:45 .P/
[2017-02-25] MEDS ORDERED: NAPR-688 PO (11:51)
[2017-02-25 12:36] VITALS: BP 126/86; PULSE 83; RESP 18; TEMP 98
--- NOTE | 2017-02-25 12:50 | ERD ---
ER Documentation Chief Complaint Date/Time DATE: 02/25/17 TIME: 12:42 Chief Complaint right leg pain x 1 week HPI This is a 61-year-old female presenting to the emergency department complaining of moderate right knee pain that radiates down to her calf for the past week. She denies any trauma. Not taking any medications for this or fevers ROS All systems reviewed and are negative except as per history of present illness. Medications Home Meds Active Scripts Naproxen* (Naproxen*) 500 Mg Tablet, 500 MG PO BID Y for PAIN, #30 TAB Prov:WESLEY WELDON PA-C 02/25/17 Guaifenesin-Dextromethorphan* (Robitussin* DM) 100MG/10MG/5ML Syrup, 10 ML PO Q4H Y for COUGH, #1 BOTTLE Prov:DARREN GARCIA 10/05/16 Levofloxacin* (Levaquin*) 750 Mg Tablet, 750 MG PO DAILY for 4 Days, TAB Prov:DARREN GARCIA 10/05/16 Albuterol Sulfate* (Ventolin HFA*) 18 Gm Hfa.aer.ad, 2 PUFF INHALATION Q4H Y for SHORTNESS OF BREATH, #1 INHALER Prov:DARREN GARCIA 10/05/16 Salmeterol Xinaf/Fluticasone* (Advair*) 250-50 Diskus Inhaler, 1 INH INH BID for 30 Days, 3 Refills Prov:DARREN GARCIA 10/05/16 Montelukast Sodium* (Montelukast Sodium*) 10 Mg Tablet, 10 MG PO HS for 30 Days , TAB 1 Refill Prov:DARREN GARCIA 10/05/16 Reported Medications Lovastatin* (Lovastatin*) 20 Mg Tablet, 20 MG PO HS, TAB 10/02/16 Ibuprofen* (Ibuprofen*) 200 Mg Capsule, 200 MG PO TID Y for PAIN, CAP 10/02/16 Aspirin* (Aspirin* EC) 81 Mg Tablet.dr, 81 MG PO DAILY, TAB 10/02/16 Allergies Allergies: Coded Allergies: No Known Allergy (Verified , 10/02/16) PMhx/Soc History of Surgery: No Anesthesia Reaction: No Hx Neurological Disorder: No Hx Respiratory Disorders: Yes (seasonal allergies) Hx Cardiac Disorders: Yes (htn, hlp) Hx Psychiatric Problems: No Hx Miscellaneous Medical Probl: No Hx Alcohol Use: Yes (socially) Hx Substance Use: No Hx Tobacco Use: Yes (quit smoking 30+ years ago) Smoking Status: Current every day smoker Physical Exam Vitals Vital Signs Date Time Temp Pulse Resp B/P Pulse Ox O2 Delivery O2 Flow Rate FiO2 02/25/17 12:36 98.0 83 18 126/86 99 Room Air 02/25/17 09:52 97.9 88 18 148/82 99 Physical Exam Const: [] Head: Atraumatic Eyes: Normal Conjunctiva ENT: Normal External Ears, Nose and Mouth. Neck: Full range of motion..~ No meningismus. Resp: Clear to auscultation bilaterally Cardio: Regular rate and rhythm, no murmurs Abd: Soft, non tender, non distended. Normal bowel sounds Skin: No petechiae or rashes Back: No midline or flank tenderness Ext: Palpation on the right knee Neur: Awake and alert Psych: Normal Mood and Affect Procedures/MDM This is a 61-year-old female presenting to the emergency department with right knee pain likely ligamentous versus tendinous injury. No evidence of any fracture, dislocation, septic arthritis or DVT. Patient stable to be discharged home to follow-up with orthopedics. Prescription for naproxen was providedVenous ultrasound was done and did not show any evidence of DVTX-ray of the right knee was done and radiologist stated Right knee pain: Small suprapatellar joint effusion. Etiology is uncertain. If there is a history of trauma, ligamentous and tendinous injury is not excluded. If characterization of the ligaments and tendons is needed MRI is recommended. Small enthesophyte that projects from the superior aspect of the patella. Finding could be the sequelae of quadriceps tendonitis. If further characterization is needed CT or MRI could be helpful. If there is high clinical suspicion for bony traumatic injury, further evaluation with CT should be considered. Departure Diagnosis: Primary Impression: Knee effusion Additional Impression: Knee pain Condition: Stable Patient Instructions: Knee Pain, Uncertain Cause, Knee Effusion Additional Instructions: SPECIALIST: YOU HAVE A MEDICAL CONDITION WHICH REQUIRES YOU TO SEE A SPECIALIST WITHIN THE NEXT 1-2 DAYS. PLEASE FOLLOW UP WITH YOUR PRIMARY PHYSICIAN FOR REFFERAL.IF YOU DO NOT HAVE A PRIMARY CARE PHYSICIAN AND/OR YOU CAN NOT AFFORD TO SEE A PHYSICIAN THE FOLLOWING RESOURCES HAVE BEEN SUPPLIED TO YOU. IT IS YOUR RESPONSIBILITY TO BE SEEN BY THE SPECIALIST FOLLOW UP WITH YOUR PRIMARY CARE PHYSICIAN TOMORROW.Return to this facility if you are not improving as expected. Take all medicines as directed. WESLEY WELDON PA-C Feb 25, 2017 12:49
== END 2017-02-25 12:37 | disposition home or self-care (01) ==
LOC: FTE 09:50
DX: M25.461 Effusion, right knee (principal); F17.210 Nicotine dependence, cigarettes, uncomplicated; I10 Essential (primary) hypertension; Z79.82 Long term (current) use of aspirin
CPT/HCPCS: 73562; 93971; Z7502

== ENCOUNTER 2017-05-06 13:23 | Day surgery (SDC) | payer OTHER ==
[~2017-05-06] VITALS: Ht 163.8 cm; Wt 73.1 kg
[~2017-05-06 13:23] MED LIST changes: +NAPR-688 PO
[2017-05-06] MEDS ORDERED: BACLOFEN (16:40)
--- NOTE | 2017-05-06 18:02 | OPPN ---
Date/Time of Note Date/Time of Note DATE: 05/06/17 TIME: 18:00 Proc Note GI Procedure Date 05/06/17 Indication: other (Colorectal cancer screening) Pre-procedure Diagnosis Colorectal cancer screening Post-procedure Diagnosis Impression: Normal colonic mucosa to cecum Moderate-sized internal hemorrhoids. Plan: Follow up as scheduled] High fiber diet Annual hemoccult stool testing [Screening colonoscopy in 10 years] . Procedure Performed: Colonoscopy Surgeon ASIF FERNANDEZ MD See signature line Home Health Billing Specialist none Anesthesia Type: moderate sedation (Versed 6 mg/fentanyl 75 mcg.) Tourniquet Time none EBL none Transfusion required none Biopsy 1: None Grafts/Implants none Tubes/Drains none Complication(s) none Disposition: home Procedure Description After informed consent, with the patient/relatives understanding the procedure, its indications and potential risks and complications, including but not limited to: Allergic reaction, bleeding, perforation, infection, and after all pertinent questions were answered to the patient's satisfaction, the patient/ relatives signed the witnessed informed consent. Following this, premedication was administered slowly IV push under careful cardiovascular and respiratory monitoring with pulse OXIMETRY, automatic blood pressure, and ekg monitor. Once the sedative effect was achieved, the patient was placed in the left lateral decubitus position, digital rectal examination was performed. The colonoscope was then introduced and advanced under visual control throughout all segments of the colon including: the rectum, sigmoid, descending colon, splenic flexure, transverse colon, hepatic flexure, ascending colon and finally reaching the cecum which was clearly identified by transillumination, finger indentation and the ileocecal valve. Careful examination of the mucosa of the lower gastrointestinal tract both on insertion as well as withdrawal of the instrument disclosed the following findings: PREPARATION QUALITY: [Adequate], RECTAL EXAM: The anorectal area was visualized examined and digital rectal examination performed with the following findings: No evidence of perirectal disease, no masses. COLONIC MUCOSA: The mucosa of all segments of the colon was carefully examined and showed the following findings: the examined mucosa appears within normal limits. There is no evidence of inflammatory changes, diverticular formation, polyps or neoplasms, vascular malformation, or any other abnormality. Moderate-sized internal hemorrhoids. The instrument was then withdrawn, the patient tolerated the procedure well and was transferred out of the Endoscopy Suite awake and in good condition to continue recovery under observation. Copies To: CC: ASIF FERNANDEZ MD, MORDO MD May 06, 2017 18:02
[2017-05-06 18:35] VITALS: BP 117/68; PULSE 78; RESP 18
[2017-05-06] MEDS ORDERED: FENTAnyl 50 MCG/ML VIAL ONE (19:02)
[2017-05-06] MEDS ORDERED: MIDAZOLAM 1 MG/ML 2 ML INJ ONE ×3 (19:02)
== END 2017-05-06 18:51 | disposition home or self-care (01) ==
LOC: GIL 13:23
PROVIDERS: ATTEND Internal Medicine Gastroenterology
DX: Z12.11 Encounter for screening for malignant neoplasm of colon (principal); K64.8 Other hemorrhoids; I10 Essential (primary) hypertension; J45.909 Unspecified asthma, uncomplicated
CPT/HCPCS: 45378; J2250; J3010